=== PATIENT | female | born 1995 | race Caucasian/White ===

== ENCOUNTER 2019-01-13 02:57 | Inpatient (IN) ==
[2019-01-13] MEDS ORDERED: *HR* Nalbuphine 10 MG/ML AMPUL IVP PRN (03:00)
[2019-01-13] MEDS ORDERED: miSOPROStol 25 MCG TABLET VG PRN (03:00)
[2019-01-13] MEDS ORDERED: Lidocaine 1% 20 ML MDV INFILT PRN (03:00)
[2019-01-13] MEDS ORDERED: Metoclopramide 10 MG/2 ML VIAL IVP PRN (03:00)
[2019-01-13] MEDS ORDERED: Ringers Solution, Lactated 1,000 ML IVC SCH (03:00)
[2019-01-13] MEDS ORDERED: Famotidine 20 MG/2 ML VIAL IVP PRN (03:00)
[2019-01-13] MEDS ORDERED: Ondansetron 4 MG/2 ML VIAL IVP PRN (03:00)
[2019-01-13] MEDS ORDERED: Naloxone 0.4 MG/ML INJ IVP PRN (03:00)
[2019-01-13] MEDS ORDERED: FLU Vac QV 19-20 (6Month+)/PF 0.5 ML SYRINGE IM ONE (03:13)
[2019-01-13 03:41] LABS: Basophils % 0.2 %; Eosinophils # 0.1 K/mcL (0.0-0.6); Eosinophils % 0.5 %; Hematocrit 36.6 % (35.3-44.9); Hemoglobin 12.6 g/dL (11.5-15.4); Immature Granulocytes % 0.5 % (0-4); Lymphocytes # 2.1 K/mcL (0.6-4.6); Lymphocytes % 22.7 %; Mean Corpuscular HGB Conc 34.4 g/dL (31.6-35.5); Mean Corpuscular Hemoglobin 26.8 pg (28.0-33.3); Mean Corpuscular Volume 77.9 fL (83.0-100.0); Mean Platelet Volume 9.8 fL (9.4-12.4); Monocytes # 0.6 K/mcL (0.0-1.3); Monocytes % 5.9 %; Neutrophils # 6.6 K/mcL (1.6-8.9); Platelet Count 241 K/mcL (140-400); Red Cell Distribution Width 15.3 % (11.5-14.5); Segmented Neutrophils % 70.2 %; White Blood Count 9.3 K/mcL (4.3-11.1)
[2019-01-13 03:43] LABS: Amphetamine Screen,Urine Negative ng/mL (Cutoff=1000); Barbiturate Screen,Urine Negative ng/mL (Cutoff=200); Benzodiazepines Screen,Urine Negative ng/mL (Cutoff=200); Cannabinoid Screen,Urine Negative ng/mL (Cutoff = 50); Cocaine Screen,Urine Negative ng/mL (Cutoff= 300); Opiate Screen,Urine Negative ng/mL (Cutoff=300); Phencyclidine Screen,Urine Negative ng/mL (Cutoff=25)
[2019-01-13] MEDS ORDERED: Oxytocin 20 units/ LR 1000 mL 20 UNIT/1,000 ML BAG IVC ONE (08:14)
[2019-01-13] MEDS ORDERED: Oxytocin 20 units/ LR 1000 mL 20 UNIT/1,000 ML BAG IVC SCH (08:15)
[2019-01-13] MEDS ORDERED: Bupivacaine-MPF 0.25% 10 ML VIAL EP ONE (10:32)
[2019-01-13] MEDS ORDERED: *HR* FentaNYL (PF) 100 MCG/2 ML VIAL EP ONE (10:32)
[2019-01-13] MEDS ORDERED: *HR* FentaNYL (PF) 100 MCG/2 ML VIAL ONE (10:53)
[2019-01-13] MEDS ORDERED: Bupivacaine-MPF 0.25% 10 ML VIAL ONE (10:53)
[2019-01-13] MEDS: Epidural Premix (fent/bupiv) 110 ML EP SCH ×2 (11:57→17:46)
[2019-01-14] MEDS ORDERED: Ropivacaine/PF 0.2% 20 ML VIAL ONE (03:53)
[2019-01-14] MEDS ORDERED: *HR* FentaNYL (PF) 100 MCG/2 ML VIAL ONE (03:53)
[2019-01-14] MEDS ORDERED: Measles/Mumps/Rubella Vacc 0.5 ML VIAL SQ PRN (09:15)
[2019-01-14] MEDS ORDERED: Oxytocin 20 units/ LR 1000 mL 20 UNIT/1,000 ML BAG IVC SCH (09:15)
[2019-01-14] MEDS ORDERED: Acetaminophen 325 MG TABLET PO PRN (09:15)
[2019-01-14] MEDS ORDERED: Acetaminophen/Butalbital/CaffeineTABLET PO PRN (09:15)
[2019-01-14] MEDS ORDERED: Rho Immune Globulin 1,500 UNIT SYRINGE IM PRN (09:15)
[2019-01-14] MEDS ORDERED: Prenatal Vit/FA 1 EACH TABLET PO SCH (09:15)
[2019-01-14] MEDS: Prenatal Vit/FA 1 EACH TABLET PO SCH (11:41)
[2019-01-14 16:07] LABS: Alanine Aminotransferase 12 Units/L (7-52); Albumin 2.9 g/dL (3.5-5.7); Alkaline Phosphatase 104 Units/L (34-104); Aspartate Amino Transferase 42 Units/L (13-39); BUN/Creatinine Ratio 12 (6-26); Bilirubin,Total 0.7 mg/dL (0.3-1.0); Blood Urea Nitrogen 8 mg/dL (6-20); Calcium 8.7 mg/dL (8.6-10.3); Carbon Dioxide 22 mEq/L (23-29); Chloride 109 mEq/L (98-107); Globulin 2.8 g/dL (2.4-3.5); Glucose 81 mg/dL (70-105); Osmolality,Calculated 285 (280-300); Potassium 3.7 mEq/L (3.5-5.1); Sodium 139 mEq/L (136-145); Total Protein 5.7 g/dL (6.4-8.9); eGFR For African Americans > 60 (> 60); eGFR For Non-African Americans > 60 (> 60)
[2019-01-14] MEDS: Ibuprofen 600 MG TABLET PO PRN ×2 (16:44→22:46)
[2019-01-15 06:08] LABS: Basophils % 0.2 %; Eosinophils # 0.2 K/mcL (0.0-0.6); Eosinophils % 1.2 %; Hematocrit 30.3 % (35.3-44.9); Immature Granulocytes % 0.5 % (0-4); Lymphocytes # 2.3 K/mcL (0.6-4.6); Lymphocytes % 15.7 %; Mean Corpuscular HGB Conc 31.7 g/dL (31.6-35.5); Mean Corpuscular Hemoglobin 26.2 pg (28.0-33.3); Mean Corpuscular Volume 82.6 fL (83.0-100.0); Mean Platelet Volume 10.5 fL (9.4-12.4); Monocytes # 1.1 K/mcL (0.0-1.3); Monocytes % 7.1 %; Neutrophils # 11.2 K/mcL (1.6-8.9); Platelet Count 196 K/mcL (140-400); Red Blood Count 3.67 M/mcL (3.82-4.97); Red Cell Distribution Width 15.5 % (11.5-14.5); Segmented Neutrophils % 75.3 %
[2019-01-15 06:09] LABS: Hemoglobin 9.6 g/dL (11.5-15.4); White Blood Count 14.9 K/mcL (4.3-11.1)
[2019-01-15] MEDS: Ibuprofen 600 MG TABLET PO PRN ×3 (07:06→22:02)
[2019-01-15] MEDS: Prenatal Vit/FA 1 EACH TABLET PO SCH (10:24)
[2019-01-15] MEDS ORDERED: FLU Vac QV 19-20 (6Month+)/PF 0.5 ML SYRINGE IM ONE (11:43)
[2019-01-15] MEDS ORDERED: Lanolin 7 G OINT...G. TP PRN (15:53)
[2019-01-16] MEDS: Prenatal Vit/FA 1 EACH TABLET PO SCH (08:01)
[2019-01-16] MEDS: Ibuprofen 600 MG TABLET PO PRN (08:02)
[2019-01-16 08:05] VITALS: BP 119/65
[2019-01-16] MEDS ORDERED: Benzocaine/Menthol 56 GM AEROSOL SPRAY TP PRN (08:29)
== END 2019-01-16 15:58 | disposition home or self-care (01) | DRG 560 ==
LOC: 1NENULAB 02:57 → 1NENUOBS 01-14 09:26
PROVIDERS: ADMIT Student in an Organized Health Care Education/Training Program; ATTEND Student in an Organized Health Care Education/Training Program